=== PATIENT | female | born 2000 | race Caucasian/White ===

== ENCOUNTER 2024-04-16 07:35 | Emergency (ER) | payer SELFPAY ==
[2024-04-16] MEDS ORDERED: Morphine 4 MG/ML VIAL ONE (08:24)
[2024-04-16] MEDS ORDERED: Ondansetron PF 4 MG/2 ML Vial ONE (08:24)
[2024-04-16 08:47] LABS: #Basophils 0.06 10x3/uL (0.0-0.2); #Eosinphils 0.11 10x3/uL (0.0-0.5); #Monocytes 0.79 10x3/uL (0.0-1.1); #Neutrophils 5.88 10x3/uL (1.5-8.4); %Basophils 0.6 % (0.0-2.0); %Eosinophils 1.1 % (0.0-6.0); %Lymphocytes 29.3 % (18.0-47.0); %Monocytes 8.1 % (0.0-10.0); %Neutrophils 60.6 % (40.0-75.0); Hematocrit 39.9 % (34.9-44.5); Hemoglobin 13.5 g/dL (12.0-15.5); Mean Corpuscular HGB CONC 33.8 g/dL (32.0-36.0); Mean Corpuscular Hemoglobin 28.3 pg (27.0-33.0); Mean Corpuscular Volume 83.6 fl (81.6-98.3); Mean Platelet Volume 10.7 fl (7.4-10.4); Platelet Count 278 10x3/uL (150-450); Red Blood Cell (RBC) Count 4.77 10x6/uL (3.90-5.03); White Blood Cell (WBC) Count 9.7 10x3/uL (3.5-10.5)
[2024-04-16 08:49] LABS: ALT (SGPT) 22 U/L (8-55); AST (SGOT) 19 U/L (5-34); Albumin 3.8 g/dL (3.5-5.0); Alkaline Phosphatase 49 U/L (40-110); Anion Gap 15 mmol/L (10-20); BUN (Urea Nitrogen) 8 mg/dL (7.0-18.7); Bilirubin, Total 0.4 mg/dL (0.2-1.2); Calc. Creatinine Clearance 0 mL/min (70-130); Calcium 9.9 mg/dL (7.8-10.44); Carbon Dioxide 23 mmol/L (22-29); Chloride 104 mmol/L (98-107); Estimated GFR 104; Globulin 3.5 g/dL (2.4-3.5); Glucose 99 mg/dL (70-105); Lipase 15 U/L (8-78); Protein, Total 7.3 g/dL (6.0-8.3); Sodium 138 mmol/L (136-145)
[2024-04-16 08:53] LABS: Bilirubin Neg (Negative); Blood, Urine 25 (Negative); Clarity Cloudy (Clear); Glucose, Urine (Dipstick) Normal (Negative); Ketone, Urine Negative (Negative); Leukocyte 500 (Negative); Nitrite Negative (Negative); Protein, Urine (Dipstick) 30 mg/dl (Neg-Trace); Urobilinogen Normal mg/dL (Less than 2)
[2024-04-16 08:55] LABS: Pregnancy Test - Urine (BHCG) Negative (Negative); Pregu Control Background? CLEAR/WHITE (CLR/WHITE); Pregu Control Bar Appear? YES (CONTROL BAR)
[2024-04-16 09:15] LABS: CAUTI Indications for Culture Pelvic or flank pain; RBC/HPF 0-3 HPF (0-3)
[2024-04-16 09:16] LABS: Bacteria/HPF 2+ HPF (None Seen)
[2024-04-16 09:18] LABS: Urine Culture Reflex Yes Yes
[2024-04-16] MEDS ORDERED: cefTRIAXone (ROCEPHIN) 2 GM VIAL ONE (09:28)
== END 2024-04-16 10:49 | disposition home or self-care (01) ==
LOC: CSHERS 07:35
DX: N10 Acute pyelonephritis (principal)
CPT/HCPCS: 80053; 81001; 81025; 83690; 85025; 87077; 87086; 87186; 96365; 96375; J0696; J2270; J2405

== ENCOUNTER 2024-05-19 08:02 | Emergency (ER) | payer SELFPAY ==
[2024-05-19] MEDS ORDERED: diphenhydrAMINE 50 MG/ML VIAL ONE (08:16)
[2024-05-19] MEDS ORDERED: Metoclopramide HCl 10 MG (2 mL) VIAL ONE (08:16)
[2024-05-19] MEDS ORDERED: Sucralfate 1 GM/10 ML UDCUP ONE (08:17)
[2024-05-19] MEDS ORDERED: Pantoprazole 40 MG VIAL ONE (08:17)
[2024-05-19 09:11] LABS: #Basophils 0.03 10x3/uL (0.0-0.2); #Monocytes 0.77 10x3/uL (0.0-1.1); %Basophils 0.3 % (0.0-2.0); %Eosinophils 0.9 % (0.0-6.0); %Lymphocytes 8.6 % (18.0-47.0); %Monocytes 6.5 % (0.0-10.0); %Neutrophils 83.3 % (40.0-75.0); Hematocrit 42.2 % (34.9-44.5); Mean Corpuscular HGB CONC 33.2 g/dL (32.0-36.0); Mean Corpuscular Hemoglobin 27.9 pg (27.0-33.0); Mean Corpuscular Volume 84.2 fL (81.6-98.3); Platelet Count 273 10x3/uL (150-450); RBC Distribution Width 13.2 % (11.5-14.5); Red Blood Cell (RBC) Count 5.01 10x6/uL (3.90-5.03); White Blood Cell (WBC) Count 11.8 10x3/uL (3.5-10.5)
[2024-05-19 09:17] LABS: BHCG - Serum Negative (NEGATIVE); Pregs Control Background? CLEAR/WHITE (CLR/WHITE); Pregs Control Bar Appear? YES (CONTROL BAR)
[2024-05-19 09:27] LABS: ALT (SGPT) 25 U/L (8-55); AST (SGOT) 17 U/L (5-34); Albumin 3.9 g/dL (3.5-5.0); Alkaline Phosphatase 51 U/L (40-110); Anion Gap 18 mmol/L (10-20); BUN (Urea Nitrogen) 13 mg/dL (7.0-18.7); Bilirubin, Total 0.5 mg/dL (0.2-1.2); Calc. Creatinine Clearance 0 mL/min (70-130); Calcium 9.3 mg/dL (7.8-10.44); Carbon Dioxide 18 mmol/L (22-29); Chloride 108 mmol/L (98-107); Estimated GFR 81; Globulin 3.2 g/dL (2.4-3.5); Glucose 137 mg/dL (70-105); Lipase 15 U/L (8-78); Potassium 4.3 mmol/L (3.5-5.1); Protein, Total 7.1 g/dL (6.0-8.3); Sodium 140 mmol/L (136-145)
[2024-05-19 10:54] LABS: Bilirubin Neg (Negative); Blood, Urine 10 (Negative); Clarity Clear (Clear); Glucose, Urine (Dipstick) Normal (Negative); Ketone, Urine 15 mg/dL (Negative); Leukocyte 100 (Negative); Nitrite Negative (Negative); Protein, Urine (Dipstick) Negative (Neg-Trace); Urobilinogen Normal mg/dL (Less than 2); pH, Urine 6.5 (5.0-9.0)
[2024-05-19 11:06] LABS: Bacteria/HPF 3+ HPF (None Seen); CAUTI Indications for Culture Pelvic or flank pain; RBC/HPF 0-3 HPF (0-3); Squamous Epithelial 0-3 HPF (0-3); Urine Culture Reflex No No
[2024-05-19] MEDS ORDERED: Iopamidol 300 61% 100 ML VIAL FS ONE (11:28)
== END 2024-05-19 11:44 | disposition home or self-care (01) ==
LOC: CSHERS 08:02
DX: K29.70 Gastritis, unspecified, without bleeding (principal); N39.0 Urinary tract infection, site not specified; R19.7 Diarrhea, unspecified; F17.290 Nicotine dependence, other tobacco product, uncomplicated; Z86.69 Personal history of other diseases of the nervous system and sense organs
CPT/HCPCS: 36415; 74177; 80053; 81001; 83605; 83690; 84703; 85025; 96361; 96374; 96375; C9113; J1200; J2765; Q9967

== ENCOUNTER 2024-06-04 10:08 | Emergency (ER) | payer SELFPAY ==
[2024-06-04] MEDS ORDERED: Dexamethasone 10 MG/ML VIAL ONE (11:09)
[2024-06-04] MEDS ORDERED: Ketorolac Tromethamine 30 MG (1 mL) VIAL ONE (11:09)
[2024-06-04] MEDS ORDERED: Acetaminophen 500 MG TAB ONE (11:10)
== END 2024-06-04 11:20 | disposition home or self-care (01) ==
LOC: CSHERS 10:08
DX: J02.0 Streptococcal pharyngitis (principal); F17.200 Nicotine dependence, unspecified, uncomplicated
CPT/HCPCS: 87430; 96372; 99282; J1100; J1885